=== PATIENT | female | born 1980 | race African-American/Black ===

== ENCOUNTER 2016-08-23 09:55 | Emergency (ER) | payer OTHER ==
[~2016-08-23 09:55] MED LIST: BIRTH CONTROL
== END 2016-08-23 10:10 | disposition home or self-care (01) ==
LOC: ER 09:55
DX: S60.415A Abrasion of left ring finger, initial encounter (principal); S60.417A Abrasion of left little finger, initial encounter; Y93.72 Activity, wrestling; Z88.0 Allergy status to penicillin; Z88.6 Allergy status to analgesic agent
CPT/HCPCS: 73130-LT; 99283